=== PATIENT | female | born 1985 | race Caucasian/White ===

== ENCOUNTER 2016-11-06 02:45 | Outpatient (CLI) | payer OTHER ==
[~2016-11-06] VITALS: Ht 162.6 cm; Wt 80.5 kg
[2016-11-06 02:57] VITALS: BP 112/57; PULSE 126; RESP 20
[2016-11-06 02:59] VITALS: Ht 162.6 cm; Wt 80.5 kg
[2016-11-06] MEDS ORDERED: ACET500C5 PO (03:03)
[2016-11-06] MEDS ORDERED: AZIT1PAC9 PO (03:12)
[2016-11-06 04:58] LABS: HEMOGLOBIN 11.6 g/dl (12.0-16.0); MONOCYTE # 0.5 10^3/ul (0.3-0.9); RED CELL DISTRIBUTION WIDTH 14.7 % (11.5-14.5); UNCORRECTED WBC 14.2 10^3/ul (4.8-10.8); WHITE BLOOD COUNT 14.2 10^3/ul (4.8-10.8)
[2016-11-06 04:58] LABS: ADD UMIC YES; URINE BILIRUBIN (Dip) 1+ (NEGATIVE); URINE BLOOD (Dip) NEGATIVE (NEGATIVE); URINE COLOR YELLOW (YELLOW); URINE GLUCOSE (Dip) NEGATIVE (NEGATIVE); URINE KETONES (Dip) 40 (NEGATIVE); URINE LEUKOCYTE ESTERASE (Dip) 1+ (NEGATIVE); URINE NITRITE (Dip) NEGATIVE (NEGATIVE); URINE TOTAL PROTEIN (Dip) 1+ (NEGATIVE); URINE UROBILINOGEN (Dip) 0.2 E.U./dL (0.1-1.0)
[2016-11-06 05:01] LABS: EOSINOPHILS % 0.1 % (0.0-7.0); HEMATOCRIT 33.5 % (37.0-47.0); LYMPHOCYTES # 0.5 10^3/ul (0.8-2.9); LYMPHOCYTES % 3.2 % (15.0-51.0); MEAN CORPUSCULAR HEMOGLOBIN 31.1 pg (29.0-33.0); MEAN CORPUSCULAR HGB CONC 34.8 g/dl (32.0-37.0); MEAN CORPUSCULAR VOLUME 89.2 fl (82.0-101.0); MEAN PLATELET VOLUME 8.1 fl (7.4-10.4); MONOCYTES % 3.4 % (0.0-11.0); NEUTROPHIL # 13.3 10^3/ul (1.6-7.5); NEUTROPHILS % 93.3 % (39.0-77.0); PLATELET COUNT 240 10^3/UL (140-440); RED BLOOD COUNT 3.75 10^6/ul (4.20-5.40)
[2016-11-06 05:11] LABS: CONDITION 1; LH ANALYZER COMMENTS 1; SUSPECT 1
[2016-11-06 05:24] LABS: ICTOTEST NEGATIVE (NEGATIVE)
[2016-11-06 05:25] LABS: BACTERIA,URINE FEW; SQUAMOUS EPITHELIAL CELL,UR MODERATE; URINE RBCS 0-2 /HPF ([, 0])
--- NOTE | 2016-11-06 06:10 | RADRPT ---
PROCEDURE: ULTRASOUND BIOPHYSICAL PROFILE CLINICAL INDICATION: 31-year-old female with contractions for viability. TECHNIQUE: Multiple sonographic images were obtained in order to perform a biophysical profile The images were reviewed on a PACS workstation. COMPARISON: None. FINDINGS: The cervix appears closed with a length of 4.0 cm measured transvaginally. There is a single viable intrauterine gestation. There is a vertex presentation. Cardiac activity is present at 136 beats p er minute. The placenta is posterior. The results of the biophysical profile are as follows: breathing movement = 2/2 Gross body movement = 2/2 tone = 2/2 Qualitative amniotic fluid volume = 2/2 Amniotic fluid index equals 15.1 cm. This yields a biophysical profile score of 8/8. IMPRESSION: Biophysical profile score is 8/8. .Jj Nagel MD, Date Time Electronically viewed and signed by .Jj Nagel MD, MD on 11/06/2016 06:10 .Lucero/
--- NOTE | 2016-11-06 06:27 | HP ---
Date/Time of Note Date/Time of Note DATE: 11/06/16 TIME: 06:18 OB - History Hx of Present Free Text/Dictation OB Triage Pt is a 31yo G1 at 30+3 presenting with c/o fever to 100.7 at home at 0100 and cough since yesterday night. Temp was 100.4 at 2300 and pt took Tylenol 1000mg PO x2. Pt reports sick contacts- boyfriend is sick. She took Robitussin DM last night with little relief. Also c/o nasal congestion. On arrival to triage, pt c/ o decreased FM x2H, however reported normal FM once lying in triage bed. Denied feeling LOF, VB or UCs. [place] palpitations when she arrived at triage which have resolved with IV hydration. Pt denies having received the Flu vaccination. Of note, pt is taking Zithromax for a tooth infection. PROCEDURE: ULTRASOUND BIOPHYSICAL PROFILE CLINICAL INDICATION: 31-year-old female with contractions for viability. TECHNIQUE: Multiple sonographic images were obtained in order to perform a biophysical profile The images were reviewed on a PACS workstation. COMPARISON: None. FINDINGS: The cervix appears closed with a length of 4.0 cm measured transvaginally. There is a single viable intrauterine gestation. There is a vertex presentation. Cardiac activity is present at 136 beats per minute. The placenta is posterior. The results of the biophysical profile are as follows: breathing movement = 2/2 Gross body movement = 2/2 tone = 2/2 Qualitative amniotic fluid volume = 2/2 Amniotic fluid index equals 15.1 cm. This yields a biophysical profile score of 8/8. IMPRESSION: Biophysical profile score is 8/8. Estimated Due Date: Jan 12, 2017 : 1 Care: Good Care Obstetrical Complications: None Medical Complications: Other (Childhood asthma (exercise induced), last use of inhaler was years ago) Past Family/Social History * Past Medical, Surgical, Family and Obstetric Histories reviewed from chart. OB Admission Exam Vital Signs Vital Signs Vital Signs Date Time Temp Pulse Resp B/P Pulse Ox O2 Delivery O2 Flow Rate FiO2 11/06/16 02:57 98.3 126 20 112/57 94 Room Air On exam, 02 sats 97% on RA Physical Exam Heart: Other (tachycardia, normal rhythm) Lungs: Clear Abdomen: WNL Extremities: Normal Heart Rate: 120's Accelerations: Accelerations Present Decelerations: No Decelerations Varibility: Moderate Contractions on Admission: >10 Minutes Apart (irregular, 6-30 min with some irritability) Last 72 hours Lab Results CBC & BMP 11/06/16 04:39 OB Assessment/Plan Other Assessment: 1) Undocumented Fever with Cough 2) Contractions Other plan: 1)Fever and Cough- Pt with normal temperature in triage s/p 2g Tylenol at home prior to arrival. Also tachycardic likely 2/2 low volume status which is confirmed on UA. CBC with slight leukocytosis -IVF bolus and PO hydration -Rapid influenza swab 2) Contractions- Likely 2/2 dehydration given contractions have spaced after IV hydration. TVCL reassuring FFN pending CAROLINE STANLEY MD Nov 06, 2016 06:26
[2016-11-06] MEDS ORDERED: LACTATED RINGER'S 1,000 ML IV SCH (06:30)
[2016-11-06] MEDS ORDERED: LACTATED RINGER'S 500 ML IV ONE (06:30)
[2016-11-06] MEDS ORDERED: OSLT75C PO (07:01)
== END 2016-11-06 06:59 | disposition home or self-care (01) ==
LOC: L-D 02:45 → OBT 02:45
PROVIDERS: ATTEND Obstetrics & Gynecology
DX: O26.893 Other specified pregnancy related conditions, third trimester (principal); R50.9 Fever, unspecified; R05 Cough; O60.03 Preterm labor without delivery, third trimester; Z3A.30 30 weeks gestation of pregnancy
CPT/HCPCS: 76817; 76818; 81001; 82731; 85025; 87400; 96360; 96361; J7120; Z7500; 81003; G0463

== ENCOUNTER 2017-02-02 15:56 | Emergency (ER) | payer OTHER ==
[~2017-02-02] VITALS: Wt 80.5 kg
[~2017-02-02 15:56] MED LIST: ACET500C5 PO; AZIT1PAC9 PO; OSLT75C PO
[2017-02-02] MEDS ORDERED: SOD CHLORIDE 0.9% 1,000 ML IV STA (16:17)
[2017-02-02] MEDS ORDERED: ONDANSETRON 4 MG INJ IV STA ×2 (16:17→18:20)
[2017-02-02] MEDS ORDERED: morphine 4 MG/ML VIAL IV STA ×2 (16:17→18:20)
[2017-02-02 16:59] LABS: ADD SCAN DIFF NO
[2017-02-02 17:02] LABS: BASOPHILS % 0.6 % (0.0-2.0); EOSINOPHILS # 0.1 10^3/ul (0.0-0.5); EOSINOPHILS % 1.7 % (0.0-7.0); HEMATOCRIT 40.5 % (37.0-47.0); HEMOGLOBIN 13.4 g/dl (12.0-16.0); LYMPHOCYTES # 2.1 10^3/ul (0.8-2.9); LYMPHOCYTES % 28.7 % (15.0-51.0); MEAN CORPUSCULAR HEMOGLOBIN 29.4 pg (29.0-33.0); MEAN CORPUSCULAR HGB CONC 33.1 g/dl (32.0-37.0); MEAN CORPUSCULAR VOLUME 88.8 fl (82.0-101.0); MEAN PLATELET VOLUME 9.4 fl (7.4-10.4); MONOCYTE # 0.2 10^3/ul (0.3-0.9); MONOCYTES % 2.9 % (0.0-11.0); NEUTROPHIL # 4.7 10^3/ul (1.6-7.5); PLATELET COUNT 441 10^3/UL (140-415); RED BLOOD COUNT 4.56 10^6/ul (4.20-5.40); RED CELL DISTRIBUTION WIDTH 13.8 % (11.5-14.5); WHITE BLOOD COUNT 7.2 10^3/ul (4.8-10.8)
[2017-02-02 17:05] LABS: ADD UMIC YES; URINE BILIRUBIN (Dip) NEGATIVE (NEGATIVE); URINE BLOOD (Dip) 1+ (NEGATIVE); URINE COLOR LT. YELLOW (YELLOW); URINE GLUCOSE (Dip) NEGATIVE (NEGATIVE); URINE KETONES (Dip) NEGATIVE (NEGATIVE); URINE LEUKOCYTE ESTERASE (Dip) 2+ (NEGATIVE); URINE NITRITE (Dip) NEGATIVE (NEGATIVE); URINE TOTAL PROTEIN (Dip) NEGATIVE (NEGATIVE); URINE UROBILINOGEN (Dip) 0.2 E.U./dL (0.1-1.0)
[2017-02-02] MEDS ORDERED: IOHEXOL 300MG/ML 150 ML BTL ONE (17:11)
[2017-02-02] MEDS ORDERED: SOD CHLORIDE 0.9% 100 ML ONE (17:11)
[2017-02-02 17:14] LABS: ALBUMIN 4.8 g/dl (3.3-4.9); POTASSIUM 4.5 mmol/L (3.5-5.1)
[2017-02-02 17:16] LABS: CREATININE 0.95 mg/dl (0.44-1.00)
[2017-02-02 17:17] LABS: ALBUMIN/GLOBULIN RATIO 1.23; BILIRUBIN,INDIRECT 0.3 mg/dl (0-1.1); BILIRUBIN,TOTAL 0.3 mg/dl (0.2-1.3); CALCIUM 9.6 mg/dl (8.4-10.2); TOTAL PROTEIN 8.7 g/dl (6.1-8.1)
[2017-02-02 17:25] LABS: BACTERIA,URINE MODERATE
--- NOTE | 2017-02-02 18:04 | ERD ---
ER Documentation Chief Complaint Date/Time DATE: 02/02/17 TIME: 18:01 Chief Complaint VAG BLEED S/P C SECTION 2 WKS AGO. DYSURIA WITH SOME HEMATURIA NOTED HPI This is a 31-year-old female who presents to the ER with multiple complaints. Patient had a 2-1/2 weeks ago and states that since a she has been bleeding vaginally. Yesterday she noted that she had some urinary frequency and dysuria with associated pelvic pain. Patient states that pain is severe 8 out of 10. Patient denies any vaginal discharge. She denies any fevers or chills. She denies any nausea vomiting or diarrhea. ROS 12 point review of systems was done, all negative except per HPI. Medications Home Meds Active Scripts Hydrocodone/Acetaminophen ([place] 5-325 Tablet) 1 Each Tablet, 1 TAB PO Q6H Y for PAIN, #20 TAB Prov:ADRIANA MITTAL 02/02/17 Phenazopyridine Hcl* (Pyridium*) 100 Mg Tab, 100 MG PO TID Y for URINARY PAIN, # 8 TAB Prov:ADRIANA MITTAL 02/02/17 Nitrofurantoin Monohyd Macrocr* (Macrobid*) 100 Mg Capsr, 100 MG PO BID for 7 Days, CAP Prov:ADRIANA MITTAL 02/02/17 Reported Medications Oseltamivir Phosphate* (Tamiflu*) 75 Mg Capsule, 75 MG PO BID, CAP 11/06/16 Azithromycin (Azithromycin) 1 Gm Packet, 1 GM PO QAM for 5 Days, PACKET 11/06/16 Acetaminophen* (Tylophen*) 500 Mg Capsule, 1000 MG PO Q6H Y for FEVER, TAB 11/06/16 Allergies Allergies: Coded Allergies: cefaclor (Verified Allergy, Unknown, haves , 11/06/16) PMhx/Soc Medical and Surgical Hx: pt denies Medical Hx, pt denies Surgical Hx Hx Alcohol Use: No Hx Substance Use: No Hx Tobacco Use: No Smoking Status: Never smoker Physical Exam Vitals Vital Signs Date Time Temp Pulse Resp B/P Pulse Ox O2 Delivery O2 Flow Rate FiO2 02/02/17 16:04 98.5 91 20 134/83 95 Physical Exam GENERAL: The patient is well developed and appropriate for usual state of health , in no apparent distress. HEENT: Atraumatic. CHEST: Clear to auscultation bilaterally. There are no rales, wheezes or rhonchi. HEART: Regular rate and rhythm. No murmurs, clicks, rubs or gallops. ABDOMEN: Soft nondistended extremely tender to palpation throughout the entire abdomen. Good bowel sounds. No rebound or guarding. No gross peritonitis. No gross organomegaly or masses. No Duncan sign or McBurney point tenderness. NEURO: Alert and oriented. SKIN: There is a incision that is nonerythematous with no discharge and no surrounding erythema. Result Diagram: 02/02/17 1630 02/02/17 1630 Results 24 hrs Laboratory Tests Test 02/02/17 16:30 White Blood Count 7.210^3/ul Red Blood Count 4.5610^6/ul Hemoglobin 13.4g/dl Hematocrit 40.5% Mean Corpuscular Volume 88.8fl Mean Corpuscular Hemoglobin 29.4pg Mean Corpuscular Hemoglobin Concent 33.1g/dl Red Cell Distribution Width 13.8% Platelet Count 52107^3/UL Mean Platelet Volume 9.4fl Neutrophils % 66.0% Lymphocytes % 28.7% Monocytes % 2.9% Eosinophils % 1.7% Basophils % 0.6% Nucleated Red Blood Cells % 0.0/100WBC Neutrophils # 4.710^3/ul Lymphocytes # 2.110^3/ul Monocytes # 0.210^3/ul Eosinophils # 0.110^3/ul Basophils # 0.010^3/ul Nucleated Red Blood Cells # 0.010^3/ul Urine Color LT. YELLOW Urine Clarity CLOUDY Urine pH 5.5 Urine Specific [place] 1.020 Urine Ketones NEGATIVE Urine Nitrite NEGATIVE Urine Bilirubin NEGATIVE Urine Urobilinogen 0.2 E.U./dL Urine Leukocyte Esterase 2+ Urine Microscopic RBC 5-10/HPF Urine Microscopic WBC >200/HPF Urine Epithelial Cells FEW Urine Bacteria MODERATE Urine Hemoglobin 1+ Urine Glucose NEGATIVE% Urine Total Protein NEGATIVE Sodium Level 142mmol/L Potassium Level 4.5mmol/L Chloride Level 102mmol/L Carbon Dioxide Level 27mmol/L Anion Gap 18 Blood Urea Nitrogen 15mg/dl Creatinine 0.95mg/dl Glucose Level 100mg/dl Calcium Level 9.6mg/dl Total Bilirubin 0.3mg/dl Direct Bilirubin 0.00mg/dl Indirect Bilirubin 0.3mg/dl Aspartate Amino Transf (AST/SGOT) 21IU/L Alanine Aminotransferase (ALT/SGPT) 21IU/L Alkaline Phosphatase 81IU/L Total Protein 8.7g/dl Albumin 4.8g/dl Globulin 3.90g/dl Albumin/Globulin Ratio 1.23 Lipase 113U/L Current Medications Medications (Trade) Dose Ordered Sig/Blanche Route PRN Reason Start Time Stop Time Status Last Admin Dose Admin Sodium Chloride (NS) 1,000 ml @ 1,000 mls/hr Q1H STAT IV 02/02/17 16:17 02/02/17 17:16 DC 02/02/17 16:42 Morphine Sulfate (morphine) 4 mg ONCE STAT IV 02/02/17 16:17 02/02/17 16:20 DC 02/02/17 16:42 Ondansetron HCl (Zofran Inj) 4 mg ONCE STAT IV 02/02/17 16:17 02/02/17 16:20 DC 02/02/17 16:43 IV Flush 10 ml 10 ml STK-MED ONCE .ROUTE 02/02/17 17:11 02/02/17 17:12 DC Sodium Chloride (NS) 100 ml @ ud STK-MED ONCE .ROUTE 02/02/17 17:11 02/02/17 17:12 DC Iohexol (Omnipaque 300mg/ ml) 150 ml STK-MED ONCE .ROUTE 02/02/17 17:11 02/02/17 17:12 DC Morphine Sulfate (morphine) 4 mg ONCE STAT IV 02/02/17 18:20 02/02/17 18:21 DC 02/02/17 18:28 Ondansetron HCl (Zofran Inj) 4 mg ONCE STAT IV 02/02/17 18:20 02/02/17 18:21 DC 02/02/17 18:27 Procedures/MDM This is a 31-year-old female presents to the ER with urinary frequency and dysuria and abdominal pain. At this time I ordered a CT with contrast to rule out abscess, however patient did not want a CT with contrast because she does not want to stop breast-feeding for 12 hours. Order was changed to CT without contrast. There is no evidence of abscess on CT scan. Ultrasound was ordered to rule out products of retained conception within the uterus, retained products of conception. Patient does have a urinary tract infection which will be treated with Macrobid. Patient is hemodynamically stable with no evidence of severe anemia. Her electrolytes are normal. Patient is afebrile and well- appearing. There is no evidence of infection to her wound. Patient needs to follow-up with her primary care doctor within 1-2 days return to ER sooner if symptoms worsen. My medical decision-making should with the patient she understands and agrees with plan. Departure Diagnosis: Primary Impression: UTI (urinary tract infection) Condition: Stable ADRIANA MITTAL Feb 02, 2017 18:04
--- NOTE | 2017-02-02 18:42 | RADRPT ---
PROCEDURE: CT Abdomen and Pelvis without contrast. CLINICAL INDICATION: Abdominal pain. TECHNIQUE: CT scan of the abdomen and pelvis without contrast was performed on a multidetector hig h-resolution CT scanner. The patient was scanned without intravenous contrast. Coronal and sagittal reformatted images were obtained from the axial source images. Images were reviewed on a high-resol [employer] PACS workstation. One or more of the following dose reduction techniques were used: Automated exposure control, adjustment of the mA and/or kV according to patient size, use of iterative recon struction technique. The total exam CTDI equals 16.61 mGy and the total exam DLP equals 814.03 mGy- cm. COMPARISON: None. FINDINGS: CT abdomen: The lung bases are clear. The heart size is normal, without pericardial thickening or effusion. The liver is enlarged measuring 21.3 cm but demonstrates normal density without focal mass or intrah epatic biliary dilatation. The spleen is normal in size and homogeneous in density. The stomach is grossly unremarkable. The pancreas as visualized is normal. The gallbladder and biliary tree are unremarkable and there is no evidence for biliary dilatation. The adrenal glands are symmetric and normal. The kidneys are symmetrically unremarkable as well. No renal calculus or obstructive uropa thy or mass lesion is seen. The aorta is of normal caliber. There is no retroperitoneal lymphadenopathy. The mauricio hepatis reg ion is clear. The small bowel and mesentery, as visualized, are unremarkable. CT pelvis: The small bowel loops situated within the pelvis are unremarkable. The uterus is mildly prominent, likely secondary to recent . Lower anterior transverse scar is noted. The pelvic sidewalls and inguinal regions are clear. The sigmoid colon and rectum are unremarkable. The appen whitney is normal. No mass, lymphadenopathy, or free fluid is seen. No acute inflammation is seen. The surrounding osseous structures are unremarkable. No osteolytic or osteoblastic lesion is detec jos. IMPRESSION: 1. No abdominal or pelvic acute inflammatory process, mass, or lymphadenopathy. 2. Prominent right hepatic lobe, may be secondary to hepatomegaly or Misti's lobe. RPTAT: JJ .Kody Aragon MD, MD Date Time Electronically viewed and signed by .Kody Aragon MD, MD on 02/02/2017 18:11 .A/
--- NOTE | 2017-02-02 18:51 | RADRPT ---
PROCEDURE: US Pelvis. CLINICAL INDICATION: Pelvic pain. vaginal bleeding TECHNIQUE: Multiple sonographic images of the pelvis were obtained utilizing a transabdominal tech nique. The images were reviewed on a PACS workstation. COMPARISON: Obstetrical ultrasound 11/06/2016 Technical note: According to the technologist, the examination is limited because of the patient's pain tolerance FINDINGS: Uterus: Mildly enlarged in size, normal in contour and echogenicity with no evidence for myometrial masses. Size is estimated at 11.6 x 9 x 6.3 cm consistent with the recently gravid state. Cervix: No abnormalities of significance are seen. Endometrium: Slightly increased in thickness; 14.8 mm without hypervascular blood flow on Doppler i nterrogation, findings more likely reflective of blood clots than a retained products of conception. Right ovary / adnexa: The ovary is not visualized. There is no obvious adnexal mass. Left ovary/adnexa: The ovary is not visualized. There is no obvious adnexal mass. Cul-de-sac: No evidence of free fluid. RPTAT:HJJR IMPRESSION: 1. Limited exam because of the patient's pain tolerance according to the technologist. 2. Slightly increased endometrial thickness of 14.8 mm without hypervascular blood flow on Doppler interrogation, findings more likely reflective of blood clots than a retained products of conception . 3. Non - visualization of the ovaries. Physician Alyssa Date Time Electronically viewed and signed by Physician Alyssa on 02/02/2017 18:51 JR/
[2017-02-02] MEDS ORDERED: NITR-58 PO (19:04)
[2017-02-02] MEDS ORDERED: PHEN-537 PO (19:06)
[2017-02-02] MEDS ORDERED: IBUP-1542 PO (19:07)
[2017-02-02] MEDS ORDERED: HYDR-906 PO (19:10)
== END 2017-02-02 19:28 | disposition home or self-care (01) ==
LOC: FTE 15:56
DX: N39.0 Urinary tract infection, site not specified (principal)
CPT/HCPCS: 36415; 74176; 76856; 80053; 81001; 83690; 85025; 96374; 96375; 96376; J2270; J2405; J7030; Q9967; Z7502; Z7610; 81003